=== PATIENT | female | born 2005 | race Caucasian/White ===

== ENCOUNTER 2023-08-20 15:49 | Emergency (ER) | payer MEDICAID, SELFPAY ==
[2023-08-20 16:08] VITALS: PULSE 98; RESP 20; TEMP 36.2; O2SAT 100
--- NOTE | 2023-08-20 16:39 | ED.FEMALEGU ---
HPI - Female Genitourinary General Chief complaint: Vaginal Bleeding Stated complaint: vaginal bleeding Time Seen by Provider: 08/20/23 16:39 Focused HPI: This is a 18-year-old female who presents to the ED with chief complaint of vaginal bleeding. Last menstrual cycle was 1 month ago. She states yesterday she had increased vaginal bleeding and clotting much more than normal. Denies syncope, lightheadedness or shortness of breath. GENERAL: Well-appearing, well-nourished, and in no acute distress. HEAD: Normocephalic, atraumatic. CHEST: Clear to auscultation. No respiratory distress. HEART: Regular rate and rhythm. NEURO: Alert and oriented x3. Patient screened in triage and initial orders placed. Additional care and disposition to be based upon diagnostic testing and treatment. Source: patient Mode of arrival: ambulatory Limitations: no limitations Related Data Allergies Allergy/AdvReac Type Severity Reaction Status Date / Time No Known Allergies Allergy Verified 08/20/23 16:59 Course Vital Signs Vital signs: Vital Signs Temperature 97.1 F L 08/20/23 16:08 Pulse Rate 98 08/20/23 16:08 Respiratory Rate 20 08/20/23 16:08 Pulse Oximetry 100 08/20/23 16:08 Oxygen Delivery Room Air 08/20/23 16:08 Temperature 98 F 08/20/23 18:49 Pulse Rate 92 08/20/23 18:49 Respiratory Rate 20 08/20/23 18:49 Blood Pressure 139/83 08/20/23 18:49 Pulse Oximetry 100 08/20/23 18:49 Oxygen Delivery Room Air 08/20/23 16:08 MDM - Female Genitourinary Lab Data 08/20/23 16:53 08/20/23 16:53 Labs: Lab Results 08/20/23 08/20/23 Range/Units 16:53 18:52 WBC 7.8 (4.5-10.0) K/mm3 RBC 4.73 (4.2-5.4) M/mm3 Hgb 13.3 (12.0-15.0) g/dL Hct 41.3 (37.0-47.0) % MCV 87.3 (80-100) fl MCH 28.1 (26-34) pg MCHC 32.2 (32-36) g/dl RDW 14.1 (11.5-14.5) % Plt Count 336 (150-375) k/mm3 MPV 9.2 (7.4-10.4) fl Immature Gran % (Auto) 0.5 (0-0.5) % Neut % (Auto) 61.6 (45.5-73.1) % Lymph % (Auto) 30.8 (18.3-44.2) % [place] % (Auto) 5.5 (2.6-8.5) % Eos % (Auto) 1.3 (0-4.4) % Baso % (Auto) 0.3 (0.2-1.2) % Lymph # (Auto) 2.40 (0.9-3.2) K/mm3 [place] # (Auto) 0.4 (0.1-0.6) K/mm3 Eos # (Auto) 0.1 (0-0.3) K/mm3 Baso # (Auto) 0.0 (0.0-0.1) K/mm3 Abs Immat Gran (auto) 0.04 H (0.00-0.031) K/mm3 Absolute Neuts (auto) 4.8 (1.3-6.7) K/mm3 Absolute Nucleated RBC 0.0 (0.0-0.012) K/mm3 Nucleated RBC % 0.0 (0.0-0.2) % PT 13.2 (11.1-14.7) Seconds INR 1.0 APTT 29.2 (22.3-36.8) SECONDS Sodium 138 (137-145) mmol/L Potassium 4.0 (3.4-5.0) mmol/L Chloride 106 (98-107) mmol/L Carbon Dioxide 27 (22-30) mmol/L Anion Gap 5 L (8-16) mmol/L BUN 15 (7-17) mg/dL Creatinine 0.80 (0.7-1.0) mg/dL Estim Creat Clear Calc 111 ml/min Estimated GFR > 60 (59 - ) Glucose 109 (65-110) mg/dL Calcium 9.6 (8.4-10.2) mg/dL Total Bilirubin 0.5 (0.2-1.3) mg/dL AST 20 (14-36) U/L ALT 11 (6-35) U/L Alkaline Phosphatase 92 (38-126) U/L Total Protein 7.0 (6.3-8.2) g/dL Albumin 4.2 (3.5-5.1) g/dL Urine Color Brown H (Yellow) Urine Appearance Turbid H (Clear) Urine pH 5.5 (5.0-9.0) Ur Specific [place] 1.027 (1.001-1.035) Urine Protein 2+ H (Negative) mg/dL Urine Glucose (UA) Negative (Negative) mg/dL Urine Ketones Negative (Negative) mg/dL Ur Blood (Man) 3+ H (Negative) Urine Nitrate Positive H (Negative) Urine Bilirubin 1+ H (Negative) Urine Urobilinogen 1.0 (<2.0) mg/dL Add Ur Microanalysis Reviewed Leukocyte Esterase Rfl 2+ H (Negative) VENITA/UL Urine RBC >100 H (0-2) /hpf Urine WBC >100 H /hpf Ur Squamous Epith Cells Occasional (Few) /hpf Urine Bacteria 4+ H /hpf Urine Casts 0-2 C. trachomatis (PCR) Not detected (NOT DETECTE) N. gonorrhoeae (PCR) Not detected (NOT DETECTE)
[2023-08-20 17:00] LABS: Basophils Percent Auto 0.3 % (0.2-1.2); Eosinophils Absolute Auto 0.1 K/mm3 (0-0.3); Eosinophils Percent Auto 1.3 % (0-4.4); Hematocrit 41.3 % (37.0-47.0); Hemoglobin 13.3 g/dL (12.0-15.0); Immature Granulocyte Absolute 0.04 K/mm3 (0.00-0.031); Immature Granulocyte Percent A 0.5 % (0-0.5); Lymphocytes Percent Auto 30.8 % (18.3-44.2); Mean Corpuscular HGB Conc 32.2 g/dl (32-36); Mean Corpuscular Hemoglobin 28.1 pg (26-34); Mean Corpuscular Volume 87.3 fl (80-100); Mean Platelet Volume 9.2 fl (7.4-10.4); Monocytes Absolute Auto 0.4 K/mm3 (0.1-0.6); Monocytes Percent Auto 5.5 % (2.6-8.5); Neutrophils Absolute Auto 4.8 K/mm3 (1.3-6.7); Neutrophils Percent Auto 61.6 % (45.5-73.1); Platelet Count Result 336 k/mm3 (150-375); Red Blood Count 4.73 M/mm3 (4.2-5.4); Red Cell Distribution Width 14.1 % (11.5-14.5); White Blood Count 7.8 K/mm3 (4.5-10.0)
[2023-08-20 17:11] LABS: Partial Thromboplastin Time 29.2 SECONDS (22.3-36.8); Prothrombin Time 13.2 Seconds (11.1-14.7)
[2023-08-20 17:14] LABS: Alanine Aminotransferase 11 U/L (6-35); Albumin Level 4.2 g/dL (3.5-5.1); Alkaline Phosphatase 92 U/L (38-126); Anion Gap 5 mmol/L (8-16); Aspartate Amino Transferase 20 U/L (14-36); Bilirubin,Total 0.5 mg/dL (0.2-1.3); Blood Urea Nitrogen 15 mg/dL (7-17); Calcium 9.6 mg/dL (8.4-10.2); Carbon Dioxide 27 mmol/L (22-30); Chloride 106 mmol/L (98-107); Estimated CRCL calculation 111 ml/min; Estimated Glomerular Filt Rate > 60; Glucose 109 mg/dL (65-110); Sodium 138 mmol/L (137-145)
[2023-08-20 17:16] LABS: Appearance Urine Turbid (Clear); Bacteria Urine 4+ /hpf; Bilirubin Urine 1+ (Negative); Blood Urine 3+ (Negative); Color Urine Brown (Yellow); Glucose Urine UA Negative (Negative); Ketones Urine Negative (Negative); Leukocyte Esterase Ur 2+ LEU/UL (Negative); Need Manual Microscopic Reviewed; Nitrate Urine Positive (Negative); Non Pathogenic Casts 0-2; Protein Urine 2+ mg/dL (Negative); RBC Urine >100 /hpf (0-2); Specific Grav Ur 1.027 (1.001-1.035); Squamous Epithelial Cell Urine Occasional /hpf (Few); WBC Urine >100 /hpf; pH Urine 5.5 (5.0-9.0)
[2023-08-20 17:17] LABS: Add Urine Microscopic? YES
--- NOTE | 2023-08-20 18:38 | ED.FEMALEGU ---
HPI - Female Genitourinary General Chief complaint: Vaginal Bleeding Stated complaint: vaginal bleeding Time Seen by Provider: 08/20/23 16:39 Source: patient Mode of arrival: ambulatory Limitations: no limitations History of Present Illness HPI Narrative: 18-year-old female, LMP 07/20/2023, reports for evaluation for vaginal bleeding that started yesterday. Patient states she had a positive at home test approximately 1 month ago. She had multiple negative test afterwards. States yesterday she began having a small amount of vaginal spotting, and then today developed heavier bleeding. States she is changing her pad once an hour. She reports suprapubic cramping and states she passed a clot last night. She denies fever, chest pain, shortness of breath, lightheadedness or dizziness, syncope, dysuria or hematuria. She does endorse concern for STDs and states she has a foul-smelling vaginal discharge. Denies lesions or rashes. Patient reports irregular menstrual cycles. She is not on control. She is traveling from [place] and is going back to [place] in 2 days for her OBGYN is. Related Data Allergies Allergy/AdvReac Type Severity Reaction Status Date / Time No Known Allergies Allergy Verified 08/20/23 16:59 Review of Systems Review of Systems: CONSTITUTIONAL: Denies fever, chills, or sweats. EYES: Denies visual changes, redness, or discharge. ENT: Denies rhinorrhea, congestion, sore throat, or otalgia. CARDIOVASCULAR: Denies chest pain, palpitations, or edema. RESPIRATORY: Denies cough or dyspnea. GASTROINTESTINAL: Denies abdominal pain, nausea, vomiting, or diarrhea. GENITOURINARY: See HPI SKIN: Denies rash or itching. MUSCULOSKELETAL: Denies back pain, joint pain, or myalgia. NEUROLOGIC: Denies headache, numbness, or weakness. PSYCHIATRIC: Denies anxiety or depression. Exam Narrative: GENERAL: Well-appearing, well-nourished, and in no acute distress. Patient resting comfortably in exam bed. She is pleasant and conversational, nontoxic appearing. HEAD: Normocephalic, atraumatic. EYES: PERRLA and EOMI. ENT: Nares clear, no rhinorrhea or epistaxis. Mucous membranes moist. NECK: Supple. CHEST: Clear to auscultation. No respiratory distress. HEART: Regular rate and rhythm. No murmur heard. Normal peripheral pulses. ABDOMEN: Soft, nontender, nondistended, normal active bowel sounds. No rebound, guarding or rigidity. No CVA tenderness. : Normal external genitalia without lesions or rashes. Moderate amount of blood in the vaginal vault, no clots. Cervical os is closed, no discharge noted. No CMT, adnexal masses or tenderness. EXTREMITIES: Normal range of motion. No edema. SKIN: Warm, dry, no rash. NEURO: No focal deficits. Alert and oriented x3 Course Vital Signs Vital signs: Vital Signs Temperature 97.1 F L 08/20/23 16:08 Pulse Rate 98 08/20/23 16:08 Respiratory Rate 20 08/20/23 16:08 Pulse Oximetry 100 08/20/23 16:08 Oxygen Delivery Room Air 08/20/23 16:08 Temperature 97.1 F L 08/20/23 16:08 Pulse Rate 98 08/20/23 16:08 Respiratory Rate 20 08/20/23 16:08 Pulse Oximetry 100 08/20/23 16:08 Oxygen Delivery Room Air 08/20/23 16:08 MDM - Female Genitourinary MDM Narrative Medical decision making narrative: 18-year-old female, LMP 07/20/2023, reports for evaluation for vaginal bleeding since yesterday. See HPI for further history. Vitals are stable patient is well-appearing and nontoxic on exam. Abdomen is soft and nontender. exam shows a moderate amount of blood in the vaginal vault, no CMT, adnexal masses or tenderness. No clots noted on exam. CBC obtained which shows no leukocytosis or anemia. Chemistries are unremarkable. Urinalysis concerning for nitrite positive urinary tract infection with 4+ bacteriuria and pyuria. Urine culture pending. Her test is negative. Chlamydia, gonorrhea Trichomonas test pending. Labs a
[2023-08-20 18:49] VITALS: BP 139/83; PULSE 92; RESP 20; TEMP 36.6; O2SAT 100
[2023-08-20] MEDS: cefTRIAXone 1 GM VIAL 0.5 GM IM (18:50)
[2023-08-20] MEDS: metroNIDAZOLE 500 MG TABLET PO (18:50)
[2023-08-20] MEDS: DOXYCYCLINE HYCLATE 100 MG TABLET PO (18:50)
[2023-08-20] MEDS: LIDOCAINE HCL 1% LOCAL INJ 10 ML VIAL (19:00)
[2023-08-20 20:08] LABS: Trichomonas Vag PCR NOT DETECTED (NOT DETECTE)
[2023-08-20 20:29] LABS: Chlamydia trachomatis NOT DETECTED (NOT DETECTE); Neisseria gonorrhoeae PCR NOT DETECTED (NOT DETECTE)
== END 2023-08-20 19:02 | disposition home or self-care (01) ==
PROVIDERS: Physician Assistant; Emergency Provider Physician Assistant
DX: N93.9 Abnormal uterine and vaginal bleeding, unspecified (principal)
CPT/HCPCS: 36415; 80053; 81001; 81025; 85025; 85610; 85730; 87086; 87186; 87491; 87591; 87661; 96372; 99284; A9270; J0696

== ENCOUNTER 2024-02-08 19:26 | Emergency (ER) | payer SELFPAY ==
[2024-02-08 19:31] VITALS: BP 120/61; PULSE 90; RESP 14; TEMP 36.8; O2SAT 99
--- NOTE | 2024-02-08 20:32 | ED.FEMALEGU ---
HPI - Female Genitourinary General Chief complaint: Urogenital-Female Stated complaint: std testing Time Seen by Provider: 02/08/24 20:15 Source: patient Mode of arrival: ambulatory Limitations: no limitations History of Present Illness HPI Narrative: Jes is a 18-year-old female patient presenting to the ER today requesting STI testing. She denies any vaginal discharge, odor, or pelvic pain. She reports that her significant other has been cheating on her and they last had vaginal intercourse yesterday and she is concerned about sexually transmitted infection. She denies any fever, chills, back pain, abdominal pain, or pelvic pain at this time. Related Data Allergies Allergy/AdvReac Type Severity Reaction Status Date / Time No Known Allergies Allergy Verified 08/20/23 16:59 Review of Systems Review of Systems: Pertinent positives per HPI. Patient denies any fever, chills, rash, headache, visual changes, dizziness, cough, runny nose, sore throat, shortness of breath, chest pain, palpitations, nausea, vomiting, diarrhea, constipation, abdominal pain, or any urinary issues. PMFSH Comments At the time of my signature, I reviewed and agree with the nursing past medical, surgical, social, and family history. There is no relevant family history pertinent to the patient complaint. Exam Narrative: General: Well-developed, morbidly obese, in no apparent distress. Head: Normocephalic, atraumatic. Cardio: Regular rate and rhythm, s1 and s2 normal, no murmur appreciated. Resp: Clear to auscultation bilaterally, no rhonchi, rales, wheezing or rubs. Abdomen: Soft, pliable, bowel sounds present in all quadrants, non-tender to palpation, no organomegly, no CVAT tenderness. : Deferred Course Course Emergency Course: Portions of this record may have been created with voice recognition software. Vital Signs Vital signs: Vital Signs Temperature 36.8 C 02/08/24 19:31 Pulse Rate 90 02/08/24 19:31 Respiratory Rate 14 02/08/24 19:31 Blood Pressure 120/61 02/08/24 19:31 Pulse Oximetry 99 02/08/24 19:31 Oxygen Delivery Room Air 02/08/24 19:31 Temperature 36.8 C 02/08/24 19:31 Pulse Rate 90 02/08/24 19:31 Respiratory Rate 14 02/08/24 19:31 Blood Pressure 120/61 02/08/24 19:31 Pulse Oximetry 99 02/08/24 19:31 Oxygen Delivery Room Air 02/08/24 19:31 Vital signs reviewed MDM - Female Genitourinary MDM Narrative Medical decision making narrative: At the time of visit patient is resting comfortably on the exam table. Patient appears to be nontoxic. Labs: Chlamydia, gonorrhea, and Trichomonas testing via urine was sent to the lab, urine bedside test. Urine bedside test is negative. Chlamydia gonorrhea and Trichomonas testing were all negative. UA shows positive 2+ leukocytes, 21-50 white blood cells and 4+ bacteria. Plan: I suspect patient has urinary tract infection with concern of STI in a female without diagnosis. Prescription for Macrobid was sent to the pharmacy.Supportive measures were discussed with the patient and they voiced understanding discharge instructions and agrees to treatment plan. Return precautions reviewed Differential Diagnosis Differential diagnosis: Likely urinary tract infection, bacterial vaginosis, trichomoniasis, cervicitis, vaginitis and other ( Chlamydia, gonorrhea) Lab Data Labs: Lab Results 02/08/24 02/08/24 Range/Units 20:19 20:41 Urine Color Yellow (Yellow) Urine Appearance Turbid H (Clear) Urine pH 6.0 (5.0-9.0) Ur Specific [place] 1.028 (1.001-1.035) Urine Protein Trace (Negative) mg/dL Urine Glucose (UA) Negative (Negative) mg/dL Urine Ketones Negative (Negative) mg/dL Ur Blood (Man) Negative (Negative) Urine Nitrate Negative (Negative) Urine Bilirubin Negative (Negative) Urine Urobilinogen 1.0 (<2.0) mg/dL Add Ur Microanalysis Reviewed [place]
[2024-02-08 20:43] LABS: BEDSIDEPREGUCG Negative
[2024-02-08 20:55] LABS: Appearance Urine Turbid (Clear); Bacteria Urine 4+ /hpf; Bilirubin Urine Negative (Negative); Blood Urine Negative (Negative); Color Urine Yellow (Yellow); Glucose Urine UA Negative (Negative); Ketones Urine Negative (Negative); Leukocyte Esterase Ur 2+ LEU/UL (Negative); Need Manual Microscopic Reviewed; Nitrate Urine Negative (Negative); Non Pathogenic Casts 0-2; Protein Urine Trace mg/dL (Negative); RBC Urine 0-2 /hpf (0-2); Specific Grav Ur 1.028 (1.001-1.035); Squamous Epithelial Cell Urine Many /hpf (Few); WBC Urine 21-50 /hpf (0-3)
[2024-02-08 20:56] LABS: Add Urine Microscopic? YES
[2024-02-08 21:49] LABS: Trichomonas Vag PCR NOT DETECTED (NOT DETECTE)
[2024-02-08 22:11] LABS: Chlamydia trachomatis NOT DETECTED (NOT DETECTE); Neisseria gonorrhoeae PCR NOT DETECTED (NOT DETECTE)
[2024-02-08 22:29] VITALS: PULSE 68; RESP 14; O2SAT 100
== END 2024-02-08 22:29 | disposition home or self-care (01) ==
LOC: ANHED 22:09
PROVIDERS: Student in an Organized Health Care Education/Training Program; Emergency Provider Nurse Practitioner Family
DX: Z72.51 High risk heterosexual behavior (principal); N30.00 Acute cystitis without hematuria
CPT/HCPCS: 81001; 81025; 87086; 87088; 87491; 87591; 87661; 99284